=== PATIENT | female | born 2000 | race Caucasian/White ===

== ENCOUNTER 2024-12-07 18:38 | Emergency (ER) | payer OTHER ==
[~2024-12-07] VITALS: Ht 167.6 cm; Wt 68.0 kg
[2024-12-07 23:46] LABS: URINE PREG TEST NEGATIVE (NEGATIVE)
[2024-12-07] MEDS: LIDOCAINE 5% (LIDODERM) PATCH TD ONE (23:50)
[2024-12-07] MEDS: CYCLOBENZAPRINE 5MG TABLET PO ONE (23:50)
[2024-12-07] MEDS: KETOROLAC 30 MG/ML 1ML VIAL IM ONE (23:51)
[2024-12-08] MEDS ORDERED: KETO10TAB PO (01:53)
[2024-12-08] MEDS ORDERED: CYCL5TAB4 PO (01:53)
[2024-12-08] MEDS ORDERED: LIDO5DIS41 TOP (01:53)
[2024-12-08 01:58] VITALS: BP 134/79; TEMP 98; O2SAT 100
== END 2024-12-08 02:09 | disposition home or self-care (01) ==
LOC: M ED 18:38
DX: M41.84 Other forms of scoliosis, thoracic region (principal); F41.9 Anxiety disorder, unspecified; F84.0 Autistic disorder; F90.9 Attention-deficit hyperactivity disorder, unspecified type; Z79.2 Long term (current) use of antibiotics; Z79.899 Other long term (current) drug therapy
CPT/HCPCS: 72072; 84703; 96372; 99283; J1885

== ENCOUNTER 2025-02-09 14:33 | Emergency (ER) | payer OTHER ==
[~2025-02-09] VITALS: Ht 167.6 cm; Wt 67.3 kg
[~2025-02-09 14:33] MED LIST: CYCL5TAB4 PO; KETO10TAB PO; LIDO5DIS41 TOP
[2025-02-09] MEDS ORDERED: IBUP-1022 PO (16:46)
[2025-02-09] MEDS: IBUPROFEN 600MG TAB PO ONE (16:49)
[2025-02-09 16:52] VITALS: BP 117/65; TEMP 99.8; O2SAT 98
== END 2025-02-09 16:53 | disposition home or self-care (01) ==
LOC: M ED 14:33
DX: J00 Acute nasopharyngitis [common cold] (principal); M54.50 Low back pain, unspecified; M41.86 Other forms of scoliosis, lumbar region; F10.10 Alcohol abuse, uncomplicated; Z79.1 Long term (current) use of non-steroidal anti-inflammatories (NSAID); Z79.899 Other long term (current) drug therapy

== ENCOUNTER 2025-07-03 20:29 | Emergency (ER) | payer OTHER ==
[~2025-07-03] VITALS: Ht 167.6 cm; Wt 66.7 kg
[~2025-07-03 20:29] MED LIST changes: +IBUP-1022 PO; +LIDO1ADH93 TOP; -LIDO5DIS41 TOP
[2025-07-04 00:32] VITALS: BP 127/71; TEMP 97; O2SAT 99
== END 2025-07-04 00:35 | disposition home or self-care (01) ==
LOC: M ED 20:29
DX: R11.2 Nausea with vomiting, unspecified (principal); S80.12XA Contusion of left lower leg, initial encounter; S80.11XA Contusion of right lower leg, initial encounter; Y92.9 Unspecified place or not applicable; Y93.9 Activity, unspecified; Y99.9 Unspecified external cause status; V18.2XXA Unspecified pedal cyclist injured in noncollision transport accident in nontraffic accident, initial encounter; F84.0 Autistic disorder; F41.9 Anxiety disorder, unspecified; F90.9 Attention-deficit hyperactivity disorder, unspecified type; F32.A Depression, unspecified; Z79.1 Long term (current) use of non-steroidal anti-inflammatories (NSAID); Z79.899 Other long term (current) drug therapy